=== PATIENT | male | born 1975 | race Two or more races ===

== ENCOUNTER 2017-09-28 19:30 | Inpatient (IN) | payer OTHER ==
[~2017-09-28] VITALS: Ht 180.3 cm; Wt 80.2 kg
[2017-09-28] MEDS ORDERED: METF850T2 PO (19:45)
[2017-09-28] MEDS ORDERED: LISINOPRIL (19:45)
[2017-09-28] MEDS ORDERED: ANTIBIOTIC (19:45)
[2017-09-28] MEDS ORDERED: COREG (19:45)
[2017-09-28] MEDS ORDERED: FURO-93 PO (19:45)
[2017-09-28] MEDS: PLEASE ENTER ALLERGIES MC SCH ×2 (20:30→22:26)
[2017-09-28] MEDS ORDERED: SODIUM CHLORIDE FLUSH 10ML SYR IVF ONE (20:30)
[2017-09-28] MEDS ORDERED: SODIUM CHLORIDE 0.9% 1,000ML IVBOLUS ONE (20:30)
[2017-09-28 20:41] LABS: BASOPHILS # (AUTO) 0.13 x10^3/uL (0-0.1); BASOPHILS % (AUTO) 1 % (0-1); EOSINOPHILS # (AUTO) 0.18 x10^3/uL (0-0.4); EOSINOPHILS % (AUTO) 1 % (1-7); LYMPHOCYTES % (AUTO) 11 % (22-44); MD NO; MEAN CORPUSCULAR HEMOGLOBIN 30.2 pg (27.5-34.5); MEAN CORPUSCULAR HGB CONC 33.4 g/dL (33.2-36.2); MEAN CORPUSCULAR VOLUME 90.2 fL (81-97); MEAN PLATELET VOLUME 8.2 fL (7.4-10.4); MONOCYTES # (AUTO) 0.61 x10^3/uL (0.2-0.8); MONOCYTES % (AUTO) 4 % (2-9); NEUTROPHILS # (AUTO) 14.12 x10^3/uL (1.8-6.8); NEUTROPHILS % (AUTO) 84 % (42-75); PLATELET COUNT 459 x10^3/uL (130-400); RED BLOOD COUNT 3.85 x10^6/uL (4.38-5.82); RED CELL DISTRIBUTION WIDTH 14.1 % (9.4-14.8)
[2017-09-28 20:44] LABS: ALANINE AMINOTRANSFERASE 28 U/L (12-78); ALBUMIN 2.6 g/dL (3.4-5.0); ANION GAP 9 mmol/L (5-15); CALCIUM 9.2 mg/dL (8.5-10.1); CHLORIDE 103 mmol/L (98-107); CREATININE 0.75 mg/dL (0.7-1.3)
[2017-09-28 20:46] LABS: ALKALINE PHOSPHATASE 85 U/L (45-117); BILIRUBIN,TOTAL 0.7 mg/dL (0.2-1.0)
[2017-09-28] MEDS ORDERED: CEFTRIAXONE 2 GM in SODIUM CHLORIDE 0.9% 50 ML IV STA (21:05)
[2017-09-28 21:11] LABS: CLUE CELLS NONE SEEN (NONE SEEN); WET PREP WBCS MANY (FEW)
[2017-09-28] MEDS ORDERED: CEFTRIAXONE PMX 2GM/50ML 50 ML ONE (21:37)
[2017-09-28 21:52] LABS: MICROSCOPIC INDICATED
[2017-09-28] MEDS ORDERED: IBUPROFEN 200 MG TABLET ONE (22:05)
[2017-09-28] MEDS ORDERED: ACETAMINOPHEN 500 MG TABLET ONE (22:05)
[2017-09-28] MEDS ORDERED: IBUPROFEN 800 MG TABLET PO STA (22:09)
[2017-09-28] MEDS ORDERED: ACETAMINOPHEN 325 MG TABLET PO ONE (22:30)
[2017-09-28 23:35] VITALS: BP 102/66
[2017-09-29] MEDS ORDERED: PHARMACOKINETIC CONSULTATION MC ONE (00:30)
[2017-09-29] MEDS ORDERED: BISACODYL 10 MG SUPP PR PRN (00:30)
[2017-09-29] MEDS ORDERED: PHARMACOKINETIC MONITORING MC PRN (00:30)
[2017-09-29] MEDS ORDERED: LABETALOL 5MG/ML, 20ML IVPush PRN (00:30)
[2017-09-29] MEDS ORDERED: POLYETHYLENE GLYCOL 17 GM PACKET PO PRN (00:30)
[2017-09-29] MEDS ORDERED: hydrALAzine 20 MG/ML, 1ML IVPush PRN (00:30)
[2017-09-29] MEDS ORDERED: VANCOMYCIN PER PHARMACY MC PRN (00:30)
[2017-09-29] MEDS ORDERED: ONDANSETRON 2MG/ML, 2ML IVPush PRN (00:30)
[2017-09-29] MEDS ORDERED: VANCOMYCIN PMX 1GM/200ML 200 ML IV ONE (00:30)
[2017-09-29] MEDS ORDERED: ACETAMINOPHEN 325 MG TABLET PO PRN (00:30)
[2017-09-29] MEDS ORDERED: OXYcodone/APAP 5/325MG TABLET PO PRN (00:30)
[2017-09-29] MEDS ORDERED: ONDANSETRON ODT 4 MG PO PRN (00:30)
[2017-09-29] MEDS ORDERED: PROMETHAZINE 25 MG/ML, 1ML IM PRN (00:30)
[2017-09-29] MEDS ORDERED: ENALAPRILAT 1.25 MG/ML, 2ML IVPush PRN (00:30)
[2017-09-29] MEDS ORDERED: morphine SULFATE 10 MG/ML, 1ML IVPush PRN (00:30)
[2017-09-29 01:02] VITALS: BP 102/65
[2017-09-29] MEDS: PIPERACILLIN/TAZO/PMX 3.375GM 50 ML IV SCH ×5 (01:07→18:23)
[2017-09-29] MEDS: SODIUM CHLORIDE 0.9% 1,000 ML IV SCH ×3 (01:07→16:09)
[2017-09-29] MEDS: HEPARIN 5,000 UNITS/ML, 1ML SQ SCH ×3 (01:07→16:12)
[2017-09-29 01:30] LABS: HCT (SEDRATE) 34.8 % (39.2-51.8)
[2017-09-29 01:42] LABS: HEMOGLOBIN A1C 5.7 % (4.2-6.3)
[2017-09-29 02:02] LABS: FREE T4 (FREE THYROXINE) 1.26 ng/dL (0.76-1.46); THYROID STIMULATING HORMONE 1.58 mIU/L (0.358-3.740)
[2017-09-29] MEDS: VANCOMYCIN 1,700 MG in SODIUM CHLORIDE 0.9% 250 ML IV SCH ×2 (02:42→15:55)
[2017-09-29 06:03] LABS: BASOPHILS # (AUTO) 0.05 x10^3/uL (0-0.1); BASOPHILS % (AUTO) 0 % (0-1); EOSINOPHILS # (AUTO) 0.28 x10^3/uL (0-0.4); EOSINOPHILS % (AUTO) 2 % (1-7); LYMPHOCYTES % (AUTO) 17 % (22-44); MD NO; MEAN CORPUSCULAR HEMOGLOBIN 29.9 pg (27.5-34.5); MEAN CORPUSCULAR HGB CONC 33.5 g/dL (33.2-36.2); MEAN CORPUSCULAR VOLUME 89.4 fL (81-97); MEAN PLATELET VOLUME 8.5 fL (7.4-10.4); MONOCYTES # (AUTO) 0.87 x10^3/uL (0.2-0.8); MONOCYTES % (AUTO) 6 % (2-9); NEUTROPHILS # (AUTO) 10.36 x10^3/uL (1.8-6.8); NEUTROPHILS % (AUTO) 75 % (42-75); PLATELET COUNT 351 x10^3/uL (130-400)
[2017-09-29 06:06] LABS: CHLORIDE 105 mmol/L (98-107)
[2017-09-29 06:28] LABS: ALANINE AMINOTRANSFERASE 19 U/L (12-78); ALBUMIN 2.1 g/dL (3.4-5.0); ALKALINE PHOSPHATASE 67 U/L (45-117); ANION GAP 10 mmol/L (5-15); BILIRUBIN,TOTAL 0.6 mg/dL (0.2-1.0); CALCIUM 8.2 mg/dL (8.5-10.1); CHOL/HDL RATIO 2.2; CHOLESTEROL, TOTAL 56 mg/dL (140-239); CREATININE 0.96 mg/dL (0.7-1.3); HDL CHOL % 45 % (26-37); HDL CHOLESTEROL (DIRECT) 25 mg/dL (40-60); LDL CHOLESTEROL,CALCULATED 13 mg/dL (54-169); LDL/HDL RATIO 0.5 (0.5-3.0); TRIGLYCERIDES 91 mg/dL (50-200); VLDL CHOLESTEROL 18 mg/dL (0-25)
[2017-09-29] MEDS: INSULIN LISPRO 100 UNITS/ML, PEN SQ-INSULIN SCH ×4 (07:00→19:43)
[2017-09-29 07:11] VITALS: BP 97/63
[2017-09-29] MEDS: SENNA/DOCUSATE TABLET PO SCH (07:36)
[2017-09-29 15:20] VITALS: BP 163/83
[2017-09-29 19:20] VITALS: BP 136/79
[2017-09-30] MEDS: PIPERACILLIN/TAZO/PMX 3.375GM 50 ML IV SCH ×4 (00:34→18:19)
[2017-09-30] MEDS: HEPARIN 5,000 UNITS/ML, 1ML SQ SCH ×3 (00:34→17:26)
[2017-09-30] MEDS: VANCOMYCIN 1,700 MG in SODIUM CHLORIDE 0.9% 250 ML IV SCH (01:17)
[2017-09-30 01:36] VITALS: BP 116/71
[2017-09-30 05:54] LABS: BASOPHILS # (AUTO) 0.07 x10^3/uL (0-0.1); BASOPHILS % (AUTO) 1 % (0-1); EOSINOPHILS # (AUTO) 0.36 x10^3/uL (0-0.4); EOSINOPHILS % (AUTO) 3 % (1-7); LYMPHOCYTES # (AUTO) 2.21 x10^3/uL (1-3.4); LYMPHOCYTES % (AUTO) 19 % (22-44); MD NO; MEAN CORPUSCULAR HEMOGLOBIN 30.2 pg (27.5-34.5); MEAN CORPUSCULAR HGB CONC 33.4 g/dL (33.2-36.2); MEAN CORPUSCULAR VOLUME 90.4 fL (81-97); MEAN PLATELET VOLUME 8.4 fL (7.4-10.4); MONOCYTES # (AUTO) 0.83 x10^3/uL (0.2-0.8); MONOCYTES % (AUTO) 7 % (2-9); NEUTROPHILS % (AUTO) 71 % (42-75); PLATELET COUNT 367 x10^3/uL (130-400); RED BLOOD COUNT 3.64 x10^6/uL (4.38-5.82); RED CELL DISTRIBUTION WIDTH 14.1 % (9.4-14.8)
[2017-09-30 06:03] LABS: ALBUMIN 1.9 g/dL (3.4-5.0); ANION GAP 9 mmol/L (5-15); CALCIUM 8.4 mg/dL (8.5-10.1); CHLORIDE 111 mmol/L (98-107)
[2017-09-30 06:08] LABS: ALANINE AMINOTRANSFERASE 19 U/L (12-78); ALKALINE PHOSPHATASE 69 U/L (45-117); BILIRUBIN,TOTAL 0.6 mg/dL (0.2-1.0); CREATININE 0.59 mg/dL (0.7-1.3); TOTAL PROTEIN 7.4 g/dL (6.4-8.2)
[2017-09-30] MEDS: INSULIN LISPRO 100 UNITS/ML, PEN SQ-INSULIN SCH ×4 (07:00→20:30)
[2017-09-30 07:01] VITALS: BP 122/75
[2017-09-30] MEDS: SENNA/DOCUSATE TABLET PO SCH (08:21)
[2017-09-30 15:58] VITALS: BP 142/82
[2017-09-30] MEDS ORDERED: CYANOCOBALAMIN 1,000 MCG/ML, 1ML IM ONE (16:00)
[2017-09-30] MEDS: DOXYCYCLINE 100MG TABLET PO SCH ×2 (17:26→20:10)
[2017-09-30 20:15] VITALS: BP 121/72
[2017-10-01] MEDS: HEPARIN 5,000 UNITS/ML, 1ML SQ SCH ×3 (00:35→18:15)
[2017-10-01] MEDS: PIPERACILLIN/TAZO/PMX 3.375GM 50 ML IV SCH ×4 (00:36→18:15)
[2017-10-01] MEDS ORDERED: VANCOMYCIN 1,700 MG in SODIUM CHLORIDE 0.9% 250 ML IV SCH (01:15)
[2017-10-01 02:00] VITALS: BP 128/77
[2017-10-01 05:44] LABS: BASOPHILS # (AUTO) 0.11 x10^3/uL (0-0.1); BASOPHILS % (AUTO) 1 % (0-1); EOSINOPHILS # (AUTO) 0.61 x10^3/uL (0-0.4); EOSINOPHILS % (AUTO) 5 % (1-7); LYMPHOCYTES # (AUTO) 2.41 x10^3/uL (1-3.4); LYMPHOCYTES % (AUTO) 20 % (22-44); MD NO; MEAN CORPUSCULAR HEMOGLOBIN 30.6 pg (27.5-34.5); MEAN CORPUSCULAR HGB CONC 33.9 g/dL (33.2-36.2); MEAN CORPUSCULAR VOLUME 90.4 fL (81-97); MEAN PLATELET VOLUME 8.7 fL (7.4-10.4); MONOCYTES # (AUTO) 0.74 x10^3/uL (0.2-0.8); MONOCYTES % (AUTO) 6 % (2-9); NEUTROPHILS # (AUTO) 7.94 x10^3/uL (1.8-6.8); NEUTROPHILS % (AUTO) 67 % (42-75); PLATELET COUNT 368 x10^3/uL (130-400); RED BLOOD COUNT 3.39 x10^6/uL (4.38-5.82); RED CELL DISTRIBUTION WIDTH 14.2 % (9.4-14.8)
[2017-10-01 06:38] VITALS: BP 108/70
[2017-10-01 07:08] LABS: CHLORIDE 110 mmol/L (98-107)
[2017-10-01 07:13] LABS: ANION GAP 10 mmol/L (5-15); CALCIUM 8.5 mg/dL (8.5-10.1); CREATININE 0.56 mg/dL (0.7-1.3)
[2017-10-01] MEDS: INSULIN LISPRO 100 UNITS/ML, PEN SQ-INSULIN SCH ×4 (08:51→20:29)
[2017-10-01] MEDS: SENNA/DOCUSATE TABLET PO SCH (09:00)
[2017-10-01] MEDS: DOXYCYCLINE 100MG TABLET PO SCH ×2 (10:00→20:44)
[2017-10-01 12:20] VITALS: BP 133/84
[2017-10-01 19:54] VITALS: BP 122/73
[2017-10-02] MEDS: PIPERACILLIN/TAZO/PMX 3.375GM 50 ML IV SCH ×2 (02:12→08:47)
[2017-10-02] MEDS: HEPARIN 5,000 UNITS/ML, 1ML SQ SCH ×3 (02:13→18:40)
[2017-10-02 03:30] VITALS: BP 100/61
[2017-10-02] MEDS: INSULIN LISPRO 100 UNITS/ML, PEN SQ-INSULIN SCH ×4 (07:00→21:00)
[2017-10-02 07:28] VITALS: BP 117/76
[2017-10-02] MEDS: SENNA/DOCUSATE TABLET PO SCH (08:48)
[2017-10-02] MEDS: DOXYCYCLINE 100MG TABLET PO SCH ×2 (08:48→19:38)
[2017-10-02] MEDS: CYANOCOBALAMIN 1,000 MCG TABLET PO SCH (08:48)
[2017-10-02 12:11] VITALS: BP 127/74
[2017-10-02] MEDS ORDERED: CEFTRIAXONE 2 GM in SODIUM CHLORIDE 0.9% 50 ML IV SCH (14:30)
[2017-10-03 01:49] VITALS: BP 130/77
[2017-10-03] MEDS: HEPARIN 5,000 UNITS/ML, 1ML SQ SCH ×3 (02:46→18:41)
[2017-10-03 06:10] LABS: BASOPHILS # (AUTO) 0.12 x10^3/uL (0-0.1); BASOPHILS % (AUTO) 1 % (0-1); EOSINOPHILS # (AUTO) 0.37 x10^3/uL (0-0.4); EOSINOPHILS % (AUTO) 4 % (1-7); LYMPHOCYTES # (AUTO) 2.12 x10^3/uL (1-3.4); LYMPHOCYTES % (AUTO) 25 % (22-44); MD NO; MEAN CORPUSCULAR HEMOGLOBIN 30.1 pg (27.5-34.5); MEAN CORPUSCULAR HGB CONC 33.5 g/dL (33.2-36.2); MEAN CORPUSCULAR VOLUME 89.8 fL (81-97); MEAN PLATELET VOLUME 8.2 fL (7.4-10.4); MONOCYTES # (AUTO) 0.53 x10^3/uL (0.2-0.8); MONOCYTES % (AUTO) 6 % (2-9); NEUTROPHILS # (AUTO) 5.35 x10^3/uL (1.8-6.8); NEUTROPHILS % (AUTO) 63 % (42-75); PLATELET COUNT 338 x10^3/uL (130-400); RED BLOOD COUNT 3.37 x10^6/uL (4.38-5.82); RED CELL DISTRIBUTION WIDTH 14.1 % (9.4-14.8)
[2017-10-03 06:21] LABS: ANION GAP 6 mmol/L (5-15); CALCIUM 8.7 mg/dL (8.5-10.1); CHLORIDE 110 mmol/L (98-107); CREATININE 0.52 mg/dL (0.7-1.3)
[2017-10-03] MEDS: INSULIN LISPRO 100 UNITS/ML, PEN SQ-INSULIN SCH ×4 (07:00→20:23)
[2017-10-03 08:03] VITALS: BP 116/78
[2017-10-03] MEDS: DOXYCYCLINE 100MG TABLET PO SCH ×2 (08:31→20:18)
[2017-10-03] MEDS: CYANOCOBALAMIN 1,000 MCG TABLET PO SCH (08:31)
[2017-10-03] MEDS: SENNA/DOCUSATE TABLET PO SCH (09:00)
[2017-10-03 13:02] VITALS: BP 122/81
[2017-10-03] MEDS: PIPERACILLIN/TAZO/PMX 3.375GM 50 ML IV SCH ×3 (13:53→23:57)
[2017-10-03 19:50] VITALS: BP 136/87
[2017-10-04 01:39] VITALS: BP 111/68
[2017-10-04] MEDS: HEPARIN 5,000 UNITS/ML, 1ML SQ SCH ×3 (03:42→18:43)
[2017-10-04 05:52] LABS: BASOPHILS # (AUTO) 0.06 x10^3/uL (0-0.1); BASOPHILS % (AUTO) 1 % (0-1); EOSINOPHILS % (AUTO) 6 % (1-7); LYMPHOCYTES # (AUTO) 2.06 x10^3/uL (1-3.4); LYMPHOCYTES % (AUTO) 24 % (22-44); MD NO; MEAN CORPUSCULAR HEMOGLOBIN 29.9 pg (27.5-34.5); MEAN CORPUSCULAR HGB CONC 33.5 g/dL (33.2-36.2); MEAN CORPUSCULAR VOLUME 89.2 fL (81-97); MEAN PLATELET VOLUME 8.2 fL (7.4-10.4); MONOCYTES # (AUTO) 0.51 x10^3/uL (0.2-0.8); MONOCYTES % (AUTO) 6 % (2-9); NEUTROPHILS # (AUTO) 5.54 x10^3/uL (1.8-6.8); NEUTROPHILS % (AUTO) 64 % (42-75); PLATELET COUNT 337 x10^3/uL (130-400); RED BLOOD COUNT 3.37 x10^6/uL (4.38-5.82); RED CELL DISTRIBUTION WIDTH 14.1 % (9.4-14.8)
[2017-10-04] MEDS: PIPERACILLIN/TAZO/PMX 3.375GM 50 ML IV SCH ×4 (05:56→23:33)
[2017-10-04 06:04] LABS: ALBUMIN 1.9 g/dL (3.4-5.0); ANION GAP 7 mmol/L (5-15); CALCIUM 8.8 mg/dL (8.5-10.1); CHLORIDE 109 mmol/L (98-107)
[2017-10-04 06:06] LABS: CREATININE 0.66 mg/dL (0.7-1.3)
[2017-10-04] MEDS: INSULIN LISPRO 100 UNITS/ML, PEN SQ-INSULIN SCH ×4 (07:00→21:00)
[2017-10-04 08:18] VITALS: BP 112/75
[2017-10-04] MEDS: SENNA/DOCUSATE TABLET PO SCH (09:00)
[2017-10-04] MEDS: CYANOCOBALAMIN 1,000 MCG TABLET PO SCH (10:29)
[2017-10-04] MEDS: DOXYCYCLINE 100MG TABLET PO SCH ×2 (10:29→21:17)
[2017-10-04 12:41] VITALS: BP 123/82
[2017-10-04 20:00] VITALS: BP 148/80
[2017-10-04] MEDS: LACTOBACILLUS CHEW TABLET PO SCH (21:17)
[2017-10-05 02:00] VITALS: BP 144/82
[2017-10-05] MEDS: HEPARIN 5,000 UNITS/ML, 1ML SQ SCH ×2 (02:30→11:04)
[2017-10-05] MEDS: PIPERACILLIN/TAZO/PMX 3.375GM 50 ML IV SCH ×2 (05:08→11:04)
[2017-10-05] MEDS: INSULIN LISPRO 100 UNITS/ML, PEN SQ-INSULIN SCH ×2 (07:00→12:07)
[2017-10-05 07:43] VITALS: BP 133/81
[2017-10-05] MEDS: DOXYCYCLINE 100MG TABLET PO SCH (09:18)
[2017-10-05] MEDS: SENNA/DOCUSATE TABLET PO SCH (09:18)
[2017-10-05] MEDS: LACTOBACILLUS CHEW TABLET PO SCH (09:18)
[2017-10-05] MEDS: CYANOCOBALAMIN 1,000 MCG TABLET PO SCH (09:18)
[2017-10-05 12:33] VITALS: BP 115/75
[2017-10-05] MEDS ORDERED: ACID1TAB7 PO (12:45)
[2017-10-05] MEDS ORDERED: AMOX1TAB64 PO (12:45)
[2017-10-05] MEDS ORDERED: AMPICILLIN/SULBACTAM 1,500 MG in SODIUM CHLORIDE 0.9% 50 ML IV SCH (13:00)
== END 2017-10-05 16:30 | DRG 872 ==
LOC: ED 22:18 → EDIP 22:27 → 3NE 23:48
PROVIDERS: ADMIT Internal Medicine; ATTEND Internal Medicine
PROC: 0T9B70Z Drainage of Bladder with Drainage Device, Via Natural or Artificial Opening (ICD-10-PCS; principal; 2017-09-29)
PROC: 0TJB8ZZ Inspection of Bladder, Via Natural or Artificial Opening Endoscopic (ICD-10-PCS; 2017-09-29)
DX: A40.1 Sepsis due to streptococcus, group B (principal); L03.315 Cellulitis of perineum; N39.0 Urinary tract infection, site not specified; G82.20 Paraplegia, unspecified; E11.622 Type 2 diabetes mellitus with other skin ulcer; E53.8 Deficiency of other specified B group vitamins; E78.5 Hyperlipidemia, unspecified; I10 Essential (primary) hypertension; N31.9 Neuromuscular dysfunction of bladder, unspecified; L98.419 Non-pressure chronic ulcer of buttock with unspecified severity; M41.9 Scoliosis, unspecified; N32.0 Bladder-neck obstruction; N35.9 Urethral stricture, unspecified; N36.8 Other specified disorders of urethra; Z87.891 Personal history of nicotine dependence; E11.649 Type 2 diabetes mellitus with hypoglycemia without coma; Z87.828 Personal history of other (healed) physical injury and trauma; N26.1 Atrophy of kidney (terminal)
CPT/HCPCS: 36415; 74176; 80048; 80053; 80061; 80202; 81001; 82040; 82306; 82607; 82962; 83036; 83605; 83735; 84100; 84145; 84439; 84443; 85025; 85651; 86140; 87040; 87070; 87076; 87086; 87205; 87210; 87491; 87591; 87808; 96365; 99285; J0696; J1644; J2543; J3370; J3420; J7030; J7050